=== PATIENT | male | born 1970 | race Caucasian/White ===

== ENCOUNTER 2021-03-01 18:07 | Emergency (ER) | payer MEDICAID ==
[~2021-03-01] VITALS: Ht 177.8 cm; Wt 73.9 kg
[2021-03-01 18:18] VITALS: BP 120/81
--- NOTE | 2021-03-01 18:24 | NUR ---
Patient ambulated to bed 9. RN evaluating the patient at bedside.
--- NOTE | 2021-03-01 18:25 | NUR ---
ANDREW Liu is evaluating patient at bedside.
--- NOTE | 2021-03-01 18:28 | NUR ---
51 y/o M BIB self from home with c/c right leg abrasion s/p injury from metal wire 1 hour ago. Patient A&Ox4, ambulatory, states he was walking by a metal door and right leg was injured by metal wire. Patient reports pain to right anterior thigh 11/18. Abrasion noted to the R anterior thigh; bleeding controlled with towel prior to arrival. Unknown last TDAP; pt stated "I think I got it about 3 years ago. Denies any medications prior to arrival. No other medical complaint. VSS; respirations even/unlabored. Bed locked in lowest position, side rails x 1. PMH/Sx/Meds: Denies NKA
[2021-03-01] MEDS ORDERED: BACITRACIN OINT 500 UNITS/GM PKT TP ONE (18:30)
--- NOTE | 2021-03-01 18:36 | NUR ---
EMt at bedside for wound care.
--- NOTE | 2021-03-01 18:38 | NUR ---
applied bacitracin to pt wound and dressed with bandaid x2
--- NOTE | 2021-03-01 18:40 | NUR ---
Consent received for TDAP vaccination form.
[2021-03-01 18:52] VITALS: BP 120/81
--- NOTE | 2021-03-01 18:53 | NUR ---
Patient discharged with v/s stable. Written and verbal after care instructions about abrasion given and explained. Patient verbalized understanding. Ambulatory with steady gait. All questions addressed prior to discharge. Advised to follow up with PMD.
== END 2021-03-01 18:53 | disposition home or self-care (01) ==
LOC: MED 18:07
DX: S70.312A Abrasion, left thigh, initial encounter (principal); W22.8XXA Striking against or struck by other objects, initial encounter; Y93.89 Activity, other specified; Y92.89 Other specified places as the place of occurrence of the external cause; Y99.8 Other external cause status
CPT/HCPCS: 90471; 90715; 99283

== ENCOUNTER 2021-08-09 18:40 | Emergency (ER) | payer MEDICAID ==
[~2021-08-09] VITALS: Ht 177.8 cm; Wt 73.5 kg
[2021-08-09 18:45] VITALS: BP 124/77
--- NOTE | 2021-08-09 18:45 | NUR ---
TO [facility]
--- NOTE | 2021-08-09 20:20 | NUR ---
SEEN AND EXAMINED BY PA
[2021-08-09] MEDS ORDERED: NAPR-54 PO (20:41)
[2021-08-09] MEDS ORDERED: CETI1TAB5 PO (20:41)
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
[2021-08-09 21:30] VITALS: BP 120/80
--- NOTE | 2021-08-09 21:30 | NUR ---
Patient discharged with v/s stable. Written and verbal after care instructions given and explained. Patient alert, oriented and verbalized understanding of instructions. Ambulatory with steady gait. All questions addressed prior to discharge. ID band removed. Patient advised to follow up with PMD. Rx of ZYRTEC, NAPROXEN given. Patient educated on indication of medication including possible reaction and side effects. Opportunity to ask questions provided and answered.
== END 2021-08-09 21:30 | disposition home or self-care (01) ==
LOC: MED 18:40
DX: U07.1 COVID-19 (principal)
CPT/HCPCS: 99283; U0003

== ENCOUNTER 2022-07-23 15:11 | Emergency (ER) | payer MEDICAID ==
[~2022-07-23] VITALS: Ht 180.3 cm; Wt 71.7 kg
[~2022-07-23 15:11] MED LIST: CETI1TAB5 PO; NAPR-54 PO
--- NOTE | 2022-07-23 15:19 | NUR ---
Patient ambulated to bed 7
[2022-07-23 15:32] VITALS: BP 115/70
--- NOTE | 2022-07-23 15:48 | NUR ---
51 y/o male c/o left wrist pain from lifting heavy objects x 3 days ago. Patient is noted with swelling to posterior wrist. Patient has positive radial pulses. Patient is able to move and has feeling to hand. Denies taking any medication for pain. Medical History: HLD NKDA
[2022-07-23 17:03] VITALS: BP 110/73
--- NOTE | 2022-07-23 17:03 | NUR ---
Patient discharged with v/s stable. Written and verbal after care instructions given. Patient verbalized understanding. Ambulatory with steady gait. All questions addressed prior to discharge. Advised to follow up with PMD.
--- NOTE | 2022-07-23 17:09 | NUR ---
The patient's care was reviewed and supervised by ED Agency Nurse 8, RN, RN.
[2022-07-24] MEDS ORDERED: LID5T TP (12:49)
[2022-07-24] MEDS ORDERED: IBUP-2213 PO (12:49)
[2022-07-24] MEDS ORDERED: CYCL-711 PO (12:49)
== END 2022-07-23 17:03 | disposition home or self-care (01) ==
LOC: MED 15:11
DX: S63.502A Unspecified sprain of left wrist, initial encounter (principal); Z79.899 Other long term (current) drug therapy; X50.0XXA Overexertion from strenuous movement or load, initial encounter; Y93.89 Activity, other specified; Y92.89 Other specified places as the place of occurrence of the external cause; Y99.8 Other external cause status
CPT/HCPCS: 81025; 99283

== ENCOUNTER 2022-11-25 19:50 | Emergency (ER) | payer MEDICAID ==
[~2022-11-25] VITALS: Ht 175.3 cm; Wt 71.7 kg
[~2022-11-25 19:50] MED LIST changes: +CYCL-711 PO; +IBUP-2213 PO; +LID5T TP
[2022-11-25 19:58] VITALS: BP 122/73
--- NOTE | 2022-11-25 20:02 | NUR ---
PT TO BED 12
--- NOTE | 2022-11-25 20:13 | NUR ---
Patient resting in bed, A/Ox4, chest rise and fall symmetrical, no s/s of distress, patient on monitor.
[2022-11-25] MEDS ORDERED: LIDOCAINE 5% 1 EA PATCH TP ONE ×2 (20:50→22:37)
[2022-11-25] MEDS ORDERED: IBUPROFEN 600 MG TAB PO ONE (20:50)
--- NOTE | 2022-11-25 22:03 | NUR ---
Patient resting in bed, A/Ox4, chest rise and fall symmetrical, no s/s of distress, patient on monitor. Addendum: 11/25/22 at 2203 by [id number] Patient resting in bed, A/Ox4, chest rise and fall symmetrical, no c/o pain or s/s of distress, patient on monitor.
[2022-11-25] MEDS ORDERED: IBUPROFEN 600 MG TAB ONE (22:37)
[2022-11-25] MEDS ORDERED: IBUP-2213 PO (22:40)
[2022-11-25] MEDS ORDERED: LID5T TP (22:40)
[2022-11-25 22:57] VITALS: BP 122/74
== END 2022-11-25 22:55 | disposition home or self-care (01) ==
LOC: MED 19:50
DX: M25.511 Pain in right shoulder (principal); Z79.899 Other long term (current) drug therapy
CPT/HCPCS: 73030; 99283

== ENCOUNTER 2022-11-29 06:55 | Emergency (ER) | payer MEDICAID ==
[~2022-11-29] VITALS: Ht 175.3 cm; Wt 64.4 kg
[2022-11-29 07:14] VITALS: BP 111/85
--- NOTE | 2022-11-29 08:00 | NUR ---
51 Y/O MALE BIB SELF C/O RIGHT FOOT PAIN X1 WEEK. DENIES ANY TRAUMA/INJURY. NO OVERT DEFORMITY NOTED. PER PT HE USED VOLTAREN CREAM FOR PAIN WITH MINIMAL RELIEF. PMH: HDL NKA
[2022-11-29] MEDS ORDERED: IBUPROFEN 400 MG TAB PO ONE (08:10)
[2022-11-29] MEDS ORDERED: ACET-8905 PO (08:17)
[2022-11-29] MEDS ORDERED: INDO-305 PO (08:17)
--- NOTE | 2022-11-29 08:41 | NUR ---
Patient discharged with v/s stable. Written and verbal after care instructions ABOUT [employer] given and explained. Patient alert, oriented and verbalized understanding of instructions. Ambulatory with steady gait. All questions addressed prior to discharge. ID band removed. Patient advised to follow up with PMD. Rx of INDOMETHACIN AND NORCO 5-325 given. Patient educated on indication of medication including possible reaction and side effects. Opportunity to ask questions provided and answered.
== END 2022-11-29 08:40 | disposition home or self-care (01) ==
LOC: MED 06:55
DX: M10.9 Gout, unspecified (principal); E78.5 Hyperlipidemia, unspecified; Z79.899 Other long term (current) drug therapy
CPT/HCPCS: 99283

== ENCOUNTER 2023-03-23 16:26 | Emergency (ER) | payer MEDICAID ==
[~2023-03-23] VITALS: Ht 180.3 cm; Wt 74.5 kg
[~2023-03-23 16:26] MED LIST changes: +ACET-8905 PO; +INDO-305 PO
[2023-03-23 16:33] VITALS: BP 126/79; PULSE 59; RESP 20; TEMP 97.5; O2SAT 98
[2023-03-23] MEDS ORDERED: ACET-10509 PO (17:05)
[2023-03-23] MEDS ORDERED: IBUP-2213 PO (17:05)
[2023-03-23] MEDS ORDERED: CYCL-711 PO (17:05)
[2023-03-23] MEDS ORDERED: LIDOCAINE 5% 1 EA PATCH TP ONE (17:10)
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
[2023-03-23 17:30] VITALS: BP 124/79; PULSE 73; RESP 16; O2SAT 99
--- NOTE | 2023-03-23 17:34 | NUR ---
Patient discharged with v/s stable. Written and verbal after care instructions given and explained. Patient alert, oriented and verbalized understanding of instructions. Ambulatory with steady gait. All questions addressed prior to discharge. ID band removed. Patient advised to follow up with PMD. Rx reviewed. Patient educated on indication of medication including possible reaction and side effects. Opportunity to ask questions provided and answered.
== END 2023-03-23 17:30 | disposition home or self-care (01) ==
LOC: MED 16:26
DX: S16.1XXA Strain of muscle, fascia and tendon at neck level, initial encounter (principal); E78.00 Pure hypercholesterolemia, unspecified; Z79.899 Other long term (current) drug therapy; Z79.1 Long term (current) use of non-steroidal anti-inflammatories (NSAID); V49.9XXA Car occupant (driver) (passenger) injured in unspecified traffic accident, initial encounter; Y93.89 Activity, other specified; Y92.410 Unspecified street and highway as the place of occurrence of the external cause; Y99.8 Other external cause status
CPT/HCPCS: 99283